=== PATIENT | male | born 1975 | race African-American/Black ===

== ENCOUNTER 2023-04-03 08:18 | Emergency (ER) | payer MEDICAID ==
[~2023-04-03] VITALS: Ht 182.9 cm; Wt 108.0 kg
[2023-04-03 08:38] VITALS: O2SAT 100
[2023-04-03] MEDS ORDERED: ONDANSETRON HCL 4MG/2ML INJ IM STA (11:01)
[2023-04-03] MEDS ORDERED: KETOROLAC 60MG/2ML VIAL IM STA (11:01)
[2023-04-03 11:28] LABS: HEMOGLOBIN. 13.1 g/dL (14.0-18.0); MEAN CORPUSCULAR HGB CONC 32.1 g/dL (31.0-37.0); MEAN CORPUSCULAR VOLUME 93.5 fL (80.0-94.0); MEAN PLATELET VOLUME 9.7 fl (7.4-10.4); PLATELET 252 x1000/uL (130-400); RED BLOOD CELL COUNT 4.38 mill/uL (4.7-6.1); RED CELL DISTRIBUTION WIDTH 12.7 % (11.6-14.6); WHITE BLOOD COUNT 6.5 x1000/uL (4.5-11.0)
[2023-04-03 11:37] LABS: DIFFERENTIAL COMMENT 1
[2023-04-03 11:46] LABS: ALANINE AMINOTRANSFERASE 13 IU/L (10-49); ALBUMIN 4.5 g/dL (3.2-4.8); ASPARTATE AMINOTRANSFERASE 20 IU/L (<34); BILIRUBIN TOTAL 1.2 mg/dL (0.1-1.0); CALCIUM 9.5 mg/dL (8.7-10.4); CARBON DIOXIDE 21 mEq/L (21-32); CHLORIDE 107 mEq/L (98-107); CREATININE 1.1 mg/dL (0.6-1.3); GLUCOSE 87 mg/dL (70-105); PROTEIN TOTAL 8.3 g/dL (6.0-8.3); SODIUM 138 mEq/L (136-145); UREA NITROGEN BLOOD 20 mg/dL (9-23)
[2023-04-03 12:09] LABS: NUCLEATED RED BLOOD CELLS 1 /100 WBC; PLATELET ESTIMATE NORMAL
[2023-04-03 14:36] LABS: CLARITY URINE CLOUDY (CLEAR); COLOR URINE YELLOW (YELLOW); SPECIFIC GRAVITY URINE 1.025 (1.005-1.030)
[2023-04-03 14:37] LABS: GLUCOSE URINE NEGATIVE (NEGATIVE); KETONES URINE TRACE (NEGATIVE); LEUKOCYTE ESTERASE URINE NEGATIVE (NEGATIVE); NITRITE URINE NEGATIVE (NEGATIVE); OCCULT BLOOD URINE NEGATIVE (NEGATIVE); PH URINE 5.5 (4.5-8.0); PROTEIN URINE 1+ (NEGATIVE)
[2023-04-03] MEDS ORDERED: ACET-2708 MT (14:52)
[2023-04-03 15:02] VITALS: BP 130/86; PULSE 94; RESP 16; TEMP 98.6
[2023-04-03 15:07] LABS: AMORPHOUS SEDIMENT URINE 3+ /lpf; SQUAMOUS EPITHELIAL CELL URINE NONE SEEN /lpf (RARE/1+)
[2023-04-03 15:08] LABS: BACTERIA URINE 3+; RBC URINE NONE SEEN /hpf (0-2); WBC URINE 0-2 /hpf (0-2)
== END 2023-04-03 15:03 | disposition home or self-care (01) ==
LOC: ER 08:18
DX: M79.10 Myalgia, unspecified site (principal); R53.83 Other fatigue; Z20.822 Contact with and (suspected) exposure to COVID-19
CPT/HCPCS: 99284; 71045; 87426; 80053; 81003; 83690; 85025; 87804 ×2; 36415; 96372; J1885; J2405